=== PATIENT | female | born 1995 | race Caucasian/White ===

== ENCOUNTER 2022-01-30 09:16 | Outpatient (CLI) | payer BC, SELFPAY ==
[2022-01-30 11:17] LABS: Cholesterol* 226 mg/dL (90-199); Glucose* 94 mg/dL (60-115); HDL Cholesterol* 41 mg/dL (>=50); LDL Cholesterol Calculated 159 mg/dL (<100); Triglycerides* 132 mg/dL (40-149)
== END 2022-01-30 09:17 | disposition home or self-care (01) ==
PROVIDERS: Visit Provider Registered Nurse
DX: Z01.419 Encounter for gynecological examination (general) (routine) without abnormal findings (principal); Z12.4 Encounter for screening for malignant neoplasm of cervix; Z13.1 Encounter for screening for diabetes mellitus; Z13.6 Encounter for screening for cardiovascular disorders
CPT/HCPCS: 80061; 82947; 87624; 88175

== ENCOUNTER 2022-06-12 12:42 | Outpatient (CLI) | payer BC, SELFPAY ==
--- NOTE | 2022-06-12 13:00 | CRLHL7_ITS ---
For Patients: As a result of the Cures Act, medical imaging exams and procedure reports are released immediately into your electronic medical record. You may view this report before your referring provider. If you have questions, please contact your health care provider. INDICATION: First trimester scan, establish dates. COMPARISON: None. TECHNIQUE: Real-time morris-scale imaging of the pelvis was performed. FINDINGS: Sonographic imaging demonstrates a single living intrauterine gestation. The embryo demonstrates a regular cardiac rate measuring 179 beats per minute. The embryo`s crown-rump length measurement of 2.6 cm corresponds to a gestational age of 9 weeks 2 days with a sonographic due date of 01/13/2023. There is a normal-appearing yolk sac. There are no gross abnormalities noted within the embryo at this early state of development. The gestational sac has a normal appearance. There is no evidence of a perigestational hemorrhage. The amount of fluid within the sac appears appropriate for gestational age. The cervix is closed. The myometrium appears normal. The ovaries are of normal size. Corpus luteal cyst left ovary. There are no suspicious fluid collections noted in the cul-de-sac. IMPRESSION: Normal first trimester OB ultrasound exam. Gestational age calculated at 9 weeks 2 days with a sonographic due date of 01/13/2023. Dictated by Alvaro Davis MD @ 06/14/2022 9:39:40 AM (Electronically Signed)
== END 2022-06-12 12:43 | disposition home or self-care (01) ==
LOC: US 12:44
PROVIDERS: Visit Provider Registered Nurse
DX: Z34.91 Encounter for supervision of normal pregnancy, unspecified, first trimester (principal); Z3A.09 9 weeks gestation of pregnancy
CPT/HCPCS: 76817; 86592; 86703; 86762; 86787; 86803; 86850; 86900; 86901; 87086; 87340; 87491; 87591

== ENCOUNTER 2022-10-23 14:15 | Outpatient (CLI) | payer BC, SELFPAY | END 2022-10-23 14:16 | disposition home or self-care (01) | LOC: NFLDREF 10-25 18:58 | PROVIDERS: Visit Provider Obstetrics & Gynecology | DX: Z34.93 Encounter for supervision of normal pregnancy, unspecified, third trimester (principal); Z3A.28 28 weeks gestation of pregnancy | CPT/HCPCS: 86592 ==

== ENCOUNTER 2022-11-20 12:47 | Outpatient (CLI) | payer BC, SELFPAY ==
--- NOTE | 2022-11-20 13:00 | CRLHL7_ITS ---
For Patients: As a result of the Century Cures Act, medical imaging exams and procedure reports are released immediately into your electronic medical record. You may view this report before your referring provider. If you have questions, please contact your health care provider. OB ULTRASOUND 11/20/2022 INDICATION: History of COVID in . FINDINGS: Single. REGAN by LMP: 01/15/2023. GA: 32 weeks 0 days. Position: Vertex. Cervix: Not visualized. Placenta Position: Posterior, TA. Amniotic Fluid: 4.9 cm SDP. Heart Rate: 125. BIOMETRY: BPD: 8.5 cm. 34w, 2d, 94 percent. HC: 31 cm. 34w, 5d, 82 percent. AC: 31.1 cm. 34w, 1d, >97 percent. FL: 6.8 cm. 34w, 6d, 95 percent. FL/AC ratio: 21.77 percent. HC/AC ratio: 1. EFW: 2540 g. Weight: 5 lbs, 10 oz. age by this US: 34w, 5d. REGAN by this US: 12/27/2022. Percentile by REGAN: >97. IMPRESSION: 1. Single live intrauterine gestation at 34 weeks 5 days. REGAN of 12/27/2022. 2. Estimated weight measures 2540 grams which lies at greater than 97 percent. Kenzie Garcia M.D. Diagnostic/Breast Radiologist [email or web address] LC/freedom / DW/Dictated by: Kenzie Garcia MD @ 11/22/2022 7:32:00 AM (Electronically Signed)
== END 2022-11-20 12:48 | disposition home or self-care (01) ==
LOC: US 12:47
PROVIDERS: Visit Provider Obstetrics & Gynecology
DX: O98.513 Other viral diseases complicating pregnancy, third trimester (principal); Z3A.32 32 weeks gestation of pregnancy
CPT/HCPCS: 76816

== ENCOUNTER 2022-11-27 07:55 | Outpatient (CLI) | payer BC, SELFPAY ==
--- NOTE | 2022-11-27 08:15 | CRLHL7_ITS ---
For Patients: As a result of the Century Cures Act, medical imaging exams and procedure reports are released immediately into your electronic medical record. You may view this report before your referring provider. If you have questions, please contact your health care provider. INDICATION: MORBID OBESITY COMPARISON: 11/20/2022 TECHNIQUE: Real time morris scale imaging of the fetus was performed. Without non-stress testing. FINDINGS: Sonographic imaging demonstrates a single living intrauterine gestation. Fetus demonstrates a regular cardiac rate of 154 beats per minute. Fetus has a vertex position. The amniotic fluid volume appears lower limits of normal and there is a single deepest pocket measurement of 4.5 cm. AIDEN 8.5 cm. The fetus was active and demonstrated normal breathing movements. There was normal flexion and extension of the trunk and extremities. IMPRESSION: Normal biophysical profile score of 8 out of 8. Lower limits of normal amniotic fluid with AIDEN 8.5 cm. Dictated by Alvaro Davis MD @ 11/27/2022 8:59:56 AM (Electronically Signed)
== END 2022-11-27 07:56 | disposition home or self-care (01) ==
PROVIDERS: Visit Provider Obstetrics & Gynecology
DX: O99.210 Obesity complicating pregnancy, unspecified trimester (principal)
CPT/HCPCS: 76819

== ENCOUNTER 2022-12-04 08:59 | Outpatient (CLI) | payer BC, SELFPAY ==
--- NOTE | 2022-12-04 09:15 | CRLHL7_ITS ---
For Patients: As a result of the Century Cures Act, medical imaging exams and procedure reports are released immediately into your electronic medical record. You may view this report before your referring provider. If you have questions, please contact your health care provider. INDICATION: OBESITY COMPARISON: 11/27/2022 TECHNIQUE: Real time morris scale imaging of the fetus was performed. Without non-stress testing. FINDINGS: Sonographic imaging demonstrates a single living intrauterine gestation. Fetus demonstrates a regular cardiac rate of 176 beats per minute. Fetus has a vertex position. The amniotic fluid volume appears normal and there is a single deepest pocket measurement of 5.1 cm. The fetus was active and demonstrated normal breathing movements. There was normal flexion and extension of the trunk and extremities. IMPRESSION: Normal biophysical profile score of 8 out of 8. Dictated by Alvaro Davis MD @ 12/04/2022 11:04:21 AM (Electronically Signed)
== END 2022-12-04 09:00 | disposition home or self-care (01) ==
PROVIDERS: Visit Provider Obstetrics & Gynecology
DX: O99.210 Obesity complicating pregnancy, unspecified trimester (principal)
CPT/HCPCS: 76819

== ENCOUNTER 2022-12-09 12:48 | Outpatient (CLI) | payer BC, SELFPAY ==
--- NOTE | 2022-12-09 13:00 | CRLHL7_ITS ---
For Patients: As a result of the Century Cures Act, medical imaging exams and procedure reports are released immediately into your electronic medical record. You may view this report before your referring provider. If you have questions, please contact your health care provider. INDICATION: Obesity COMPARISON: 12/04/2022 TECHNIQUE: Real time morris scale imaging of the fetus was performed. Without non-stress testing. FINDINGS: Sonographic imaging demonstrates a single living intrauterine gestation. Fetus demonstrates a regular cardiac rate of 176 beats per minute. Fetus has a vertex position. The amniotic fluid volume appears normal and there is a single deepest pocket measurement of 6.1 cm. The fetus was active and demonstrated normal breathing movements. There was normal flexion and extension of the trunk and extremities. IMPRESSION: Normal biophysical profile score of 8 out of 8. Dictated by Alvaro Davis MD @ 12/09/2022 1:27:27 PM (Electronically Signed)
== END 2022-12-09 12:49 | disposition home or self-care (01) ==
LOC: US 12:49
PROVIDERS: Visit Provider Obstetrics & Gynecology
DX: O99.210 Obesity complicating pregnancy, unspecified trimester (principal); Z68.41 Body mass index [BMI] 40.0-44.9, adult
CPT/HCPCS: 76819

== ENCOUNTER 2022-12-18 12:01 | Outpatient (CLI) | payer BC, SELFPAY ==
--- NOTE | 2022-12-18 12:15 | CRLHL7_ITS ---
For Patients: As a result of the Century Cures Act, medical imaging exams and procedure reports are released immediately into your electronic medical record. You may view this report before your referring provider. If you have questions, please contact your health care provider. INDICATION: MORBID OBESITY TECHNIQUE: Real time morris scale imaging of the fetus was performed. COMPARISON: 12/09/2022 FINDINGS: Sonographic imaging demonstrates a single living intrauterine gestation. Fetus demonstrates a regular cardiac rate of 147 beats per minute. Fetus has a vertex position. The placenta lies posteriorly. Amniotic fluid volume appears normal and there is a single deepest pocket of 6.0 cm. AIDEN 16.4 cm. The estimated weight is 3629gm which lies at the greater than 97th %. On the prior OB ultrasound dated 11/20/2022 the estimated weight was at the greater than 97th percentile. BPD, HC, AC greater than 97th percentile. FL 43rd percentile. The fetus was active and demonstrated normal breathing movements. There was normal flexion and extension of the trunk and extremities. IMPRESSION: Normal biophysical profile score 8/8. Sonographic gestational age 39 weeks 0 days and sonographic due date of 12/25/2022. Sonographic age 3 weeks ahead of the clinical age. Estimated weight greater than 97th percentile. AC, HC, BPD greater than 97th percentile. Dictated by Alvaro Davis MD @ 12/18/2022 1:23:59 PM (Electronically Signed)
== END 2022-12-18 12:02 | disposition home or self-care (01) ==
PROVIDERS: Visit Provider Obstetrics & Gynecology
DX: O99.213 Obesity complicating pregnancy, third trimester (principal); Z68.41 Body mass index [BMI] 40.0-44.9, adult; Z3A.39 39 weeks gestation of pregnancy
CPT/HCPCS: 76816; 76819; 87081; 87653

== ENCOUNTER 2022-12-24 12:46 | Outpatient (CLI) | payer BC, SELFPAY ==
--- NOTE | 2022-12-24 13:00 | CRLHL7_ITS ---
For Patients: As a result of the Century Cures Act, medical imaging exams and procedure reports are released immediately into your electronic medical record. You may view this report before your referring provider. If you have questions, please contact your health care provider. INDICATION: OBESITY COMPARISON: 12/18/2022 TECHNIQUE: Real time morris scale imaging of the fetus was performed. Without non-stress testing. FINDINGS: Sonographic imaging demonstrates a single living intrauterine gestation. Fetus demonstrates a regular cardiac rate of 125 beats per minute. Fetus has a vertex position. The amniotic fluid volume appears normal and there is a single deepest pocket measurement of 6.2 cm. The fetus was active and demonstrated normal breathing movements. There was normal flexion and extension of the trunk and extremities. IMPRESSION: Normal biophysical profile score of 8 out of 8. Signed by: Alvaro Davis MD @12/24/2022 1:44:43 PM JR/Dictated by: Alvaro Davis MD @ 12/24/2022 1:45:00 PM (Electronically Signed)
== END 2022-12-24 12:47 | disposition home or self-care (01) ==
LOC: US 12:47
PROVIDERS: Visit Provider Obstetrics & Gynecology
DX: O99.210 Obesity complicating pregnancy, unspecified trimester (principal); Z68.41 Body mass index [BMI] 40.0-44.9, adult
CPT/HCPCS: 76819

== ENCOUNTER 2023-01-01 13:45 | Outpatient (CLI) | payer OTHER, BC, SELFPAY ==
--- NOTE | 2023-01-01 14:00 | CRLHL7_ITS ---
For Patients: As a result of the Century Cures Act, medical imaging exams and procedure reports are released immediately into your electronic medical record. You may view this report before your referring provider. If you have questions, please contact your health care provider. INDICATION: OBESITY COMPARISON: 12/24/2022 TECHNIQUE: Real time morris scale imaging of the fetus was performed. Without non-stress testing. FINDINGS: Sonographic imaging demonstrates a single living intrauterine gestation. Fetus demonstrates a regular cardiac rate of 144 beats per minute. Fetus has a vertex position. The amniotic fluid volume appears normal and there is a single deepest pocket measurement of 4.6 cm. Normal breathing movements. Minimal gross body movements. There was normal flexion and extension of the trunk and extremities. IMPRESSION: Biophysical profile 09/03. Dictated by Alvaro Davis MD @ 01/01/2023 3:24:38 PM (Electronically Signed)
== END 2023-01-01 13:46 | disposition home or self-care (01) ==
LOC: US 13:45
PROVIDERS: Visit Provider Obstetrics & Gynecology
DX: O99.210 Obesity complicating pregnancy, unspecified trimester (principal)
CPT/HCPCS: 76819

== ENCOUNTER 2023-01-05 11:58 | Outpatient (CLI) | payer OTHER, SELFPAY ==
--- NOTE | 2023-01-05 12:15 | CRLHL7_ITS ---
For Patients: As a result of the Century Cures Act, medical imaging exams and procedure reports are released immediately into your electronic medical record. You may view this report before your referring provider. If you have questions, please contact your health care provider. INDICATION: MORBID OBESITY COMPARISON: 01/01/2023 TECHNIQUE: Real time morris scale imaging of the fetus was performed. Without non-stress testing. FINDINGS: Sonographic imaging demonstrates a single living intrauterine gestation. Fetus demonstrates a regular cardiac rate of 150 beats per minute. Fetus has a vertex position. The amniotic fluid volume appears normal and there is a single deepest pocket measurement of 4.0 cm. The fetus was active and demonstrated normal breathing movements. There was normal flexion and extension of the trunk and extremities. IMPRESSION: Normal biophysical profile score of 8 out of 8. Dictated by Alvaro Davis MD @ 01/06/2023 10:06:08 AM (Electronically Signed)
== END 2023-01-05 11:59 | disposition home or self-care (01) ==
LOC: US 12:00
PROVIDERS: Visit Provider Obstetrics & Gynecology
DX: O99.210 Obesity complicating pregnancy, unspecified trimester (principal)
CPT/HCPCS: 76819

== ENCOUNTER 2023-01-11 07:03 | Inpatient (IN) | payer OTHER, SELFPAY ==
[2023-01-11] VITALS (69 sets, daily range): BP systolic 88–148; BP diastolic 51–88; PULSE 62–156; RESP 16–18; TEMP 36.4–37; O2SAT 81–100; BMI 45.6
[2023-01-11 08:14] LABS: Basophils Absolute Auto 0.02 K/uL (0.00-0.30); Basophils Percent Auto 0.2 % (0.0-3.0); Eosinophils Absolute Auto 0.06 K/uL (0.00-0.50); Eosinophils Percent Auto 0.6 % (0.0-7.0); Hematocrit 35.2 % (33.0-51.0); Hemoglobin* 11.8 gm/dL (12.0-16.0); Immature Granulocytes Abs Auto 0.05 K/uL (0.00-0.30); Immature Granulocytes Pct Auto 0.5 %; Mean Corpuscular HGB Conc 34 gm/dL (32-36); Mean Corpuscular Hemoglobin 29 pg (26-34); Mean Corpuscular Volume 87 fL (80-100); Neutrophils Percent Auto 75.7 % (42.0-72.0); Platelet Count* 260 K/uL (140-440); RDW Coefficient of Variation % 13.7 % (11.5-15.5); Red Blood Count 4.04 m/uL (4.00-5.20); White Blood Count* 9.83 K/uL (4.50-11.00)
[2023-01-11 08:15] LABS: Slide Review Reflex No
[2023-01-11] MEDS: OXYTOCIN 30 unit/500 ML in NS 30 UNIT/500 ML BAG IVPB (08:43)
--- NOTE | 2023-01-11 08:45 | P.LDBA_ITS ---
Subjective History of Present Illness Time Seen by Provider: 12:41 Date Seen: 01/11/23 Narrative: Patient is being admitted to Labor and Delivery for elective induction of labor for suspected macrosomia. She is a 27 year old at 39.3 weeks gestation. Her full history and physical was dictated by Jackie Ernandez on 12/24/22. Please see this for details. Active movement. Denies LOF, vaginal bleeding or abnormal vaginal discharge. She reports losing her mucous plug 3 days ago which was blood tinged but since then has not had any more vaginal bleeding. Currently still very comfortable without much labor pain. Feeling intermittent contractions. Specific Issues/Plans ; REGAN: 01/15/2023 by LMP 04/10/2022 c/w 1st trimester USN Fiance: Domingo. Daughter: Guera. Baby: BOY!! H&P 12/24/22, Oma Desires elective IOL at 39 weeks if undelivered - scheduling form sent out for 01/08/23, patient bumped to 01/11/23, consent signed on 01/05/2023. 1. Obesity 43.9 * Hemoglobin A1c: 5.4% * Nutrition referral declined. Patient met with Nutrition a few months ago and feels that she has a good grasp on appropriate dietary intake. * Anesthesia referral: 12/17/22 * Level 2 ultrasound: Normal anatomy by Dr. Savage 09/02/22 * Early GDM testing at 20 weeks:112 * Weekly BPP and/or NST starting at 32 weeks (likely BPP's as patient body habitus will make NST's difficult) 2. Vacuum assisted vaginal delivery for bradycardia 01/16. Second-degree perineal laceration. Meconium-stained fluid. EBL 600 mL. No shoulder dystocia. Did not really pull with vacuum at all per pt report. 3. Stress urinary incontinence. Will place referral for pelvic floor PT. Has been able to get ahold of anyone. Message sent for them to try again. 4. History of depression and anxiety. Currently feeling great. 5. Covid positive 06/26- reschedule next appt due to quarantine policy * USN for EFW at 32-36 weeks. 6. Suspected macrosomia * Growth scan on 11/20/2022: EFW >97%tile, AC >97%tile * Growth 12/18/22: EFW>97%, AC >97% * Consider elective induction labor at 39 and 40 weeks gestation. 7. History of anxiety She would like to start medication at time of discharge Flu: completed Covid: not vaccinated. Tdap: 11/09/22 OB - Problem Based A/P Additional Plan (1) BMI 40.0-44.9, adult: Status: Acute (2) : Status: Acute (3) Depression: Status: Chronic (4) Anxiety: Status: Chronic Plan - AROM at 1230 with patient's consent. Overall clear fluid, small amount of blood tinged. Patient tolerated the procedure well. - Will continue titrating pitocin - Epidural per patient request. She will eventually desire. Delivery/Labor/Induction Plan Plan: induction Induction method: per pitocin protocol OB Exam Physical Exam Vital signs: Temp Pulse Resp BP Pulse Ox 98.6 F 95 16 139/79 99 01/11/23 07:41 01/11/23 07:41 01/11/23 07:41 01/11/23 07:41 01/11/23 07:14 Detailed Labor and Delivery Exam Patient Gravid: Yes Dilation (cm): 3 Effacement (%): 50 Cervix position: mid Consistency: medium Contraction Frequency: Q2 minutes Contraction intensity: Mild Fetus (Single) Station: -3 Amniotic Membrane Status: AROM Amniotic Membrane Fluid Description: Clear (Small amount of blood tinged ) Heart Rate Baseline: 140 Monitor Accelerations: Present Monitor Decelerations: None [employer] Et[employer] Developer Variability: Moderate (6-25)
[2023-01-11] MEDS: LACTATED RINGERS 1000 ML 1,000 ML 125 ML IV (08:46)
[2023-01-11] MEDS: LACTATED RINGERS 1000 ML 1,000 ML 118 ML IV (15:33)
[2023-01-11] MEDS: LACTATED RINGERS 1000 ML 1,000 ML 1200 ML IV ×2 (16:56→17:54)
[2023-01-11 17:08] LABS: Hematocrit 35.1 % (33.0-51.0); Hemoglobin* 11.6 gm/dL (12.0-16.0); Mean Corpuscular HGB Conc 33 gm/dL (32-36); Mean Corpuscular Hemoglobin 29 pg (26-34); Mean Corpuscular Volume 88 fL (80-100); Platelet Count* 244 K/uL (140-440); Red Blood Count 3.99 m/uL (4.00-5.20)
[2023-01-11 17:14] LABS: Slide Review Reflex No
[2023-01-11] MEDS: ROPIVACAINE 0.2% 100 ml 100 ML 12 MG EPIDURAL (17:23)
[2023-01-11] MEDS: LIDOCAINE 2% (PF) 5 ML VIAL EPIDURAL (17:23)
[2023-01-11 17:24] LABS: Alanine Aminotransferase* 19 U/L (4-35); Aspartate Amino Transferase* 23 U/L (12-35); Blood Urea Nitrogen* 6 mg/dL (5-24); Creatinine* 0.6 mg/dL (0.5-1.5); Est. Creatinine Clearance* 145.89; Estimated Glomerular Filt Rate 125 ml/min
--- NOTE | 2023-01-11 17:28 | PM.ANBPRC ---
[facility] Medical History Anxiety ?F41.9 - Anxiety disorder, unspecified (ICD-10) Depression ?F32.A - Depression, unspecified (ICD-10) Morbid obesity with BMI of 40.0-44.9, adult ?E66.01 - Morbid (severe) obesity due to excess calories (ICD-10) ?Z68.41 - Body mass index [BMI] 40.0-44.9, adult (ICD-10) Surgical History History of vaginal delivery (01/04/21) H/O eye surgery ?Z98.890 - Other specified postprocedural states (ICD-10) Family History Mother Benign tumor Daughter Tracheomalacia Social History What is your current living situation?: I presently have a place to live Problems where you live: no known problems In the past 12 months, utilities in danger of being shut off: no In past 12 months, lack of transportation kept you from medical appts, meetings, work, or getting things needed for daily living: no In the past 12 mos, have been you worried that your food would run out before you had money to buy more?: never true In the past 12 mos, the food you bought just didn't last and you didn't have money to buy more?: never true Smoking Status: Never smoker How often does anyone, including family, friends and others, physically hurt you: never How often does anyone, including family, friends and others, insult or talk down to you: rarely How often does anyone, including family, friends and others, threaten you with harm: never How often does anyone, including family, friends and others, scream or curse at you: never Little interest or pleasure in doing things: not at all Feeling down, depressed, or hopeless: not at all Meds Home Medications and Allergies Home Medications Medication Instructions Recorded Confirmed Type docosahexaenoic acid 200 mg 200 mg PO .once daily 06/12/22 01/11/23 History capsule ( DHA) acetaminophen 500 mg tablet 1,000 mg PO Q6H PRN 09/02/22 01/11/23 History (Tylenol Extra Strength) calcium carbonate 200 mg calcium 200 mg PO ONCE PRN 12/04/22 01/11/23 History (500 mg) chewable tablet (Tums) Allergies Allergy/AdvReac Type Severity Reaction Status Date / Time fish oil Allergy Mild Hives Verified 01/11/23 12:09 Results Labs Labs: Laboratory Results - last 24 hr 01/11/23 01/11/23 08:06 17:00 WBC 9.83 12.60 H RBC 4.04 3.99 L Hgb 11.8 L 11.6 L Hct 35.2 35.1 MCV 87 88 MCH 29 29 MCHC 34 33 RDW Coeff of Miguelangel 13.7 Plt Count 260 244 Neut % (Auto) 75.7 H Lymph % (Auto) 16.0 L [place] % (Auto) 7.0 Eos % (Auto) 0.6 Baso % (Auto) 0.2 Neut # (Auto) 7.40 H Lymph # (Auto) 1.60 [place] # (Auto) 0.70 Eos # (Auto) 0.06 Baso # (Auto) 0.02 Abs Immat Gran (auto) 0.05 Imm/Tot Granulo (auto) 0.5 Blood Type O Positive Antibody Screen NEGATIVE Vital Signs Vital Signs: Last Vital Signs Temp 97.7 F 01/11/23 16:23 Pulse 87 01/11/23 17:27 Resp 18 01/11/23 16:23 BP 131/64 01/11/23 17:27 Pulse Ox 100 01/11/23 17:26 Weight: 140.341 kg Height: 175.26 cm Anesthesia Procedures Epidural Insertion Patient Location: OB Start Time: 17:00 Stop Time: 17:45 Start Date: 01/11/23 Stop Date: 01/11/23 Reason for Block: primary anesthetic Patient Position: sitting Performed By: Harman Bradford Preanesthetic Checklist: IV checked, risks and benefits discussed, surgical consent, monitors and equipment checked, pre-op evaluation, timeout performed and anesthesia consent Prep: chlorhexidine gluconate Monitoring: blood pressure monitoring, quality assurance monitor, continuous pulse oximetry and heart rate Approach: midline Vertebral Space: lumbar (1-5) Needle Type: Tuohy needle Injection Technique: continuous catheter (catheter) Needle gauge: 17 Needle Length (cm): 10 cm Needle Insertion Depth (cm): 7 Catheter Gauge: 19 Catheter Type: multi-orifice Catheter at skin depth (cm): 12 Test Dose Result: negative and lidocaine 1.5% with epinephrine 1 to 200,000
[2023-01-11] MEDS: PHENYLEPHRINE 100 MCG/ML SYRINGE IVP ×2 (17:56→18:01)
[2023-01-11 18:37] LABS: Total Protein Urine 7 mg/dL
[2023-01-11 18:43] LABS: Creatinine Urine 219.7 mg/dL
--- NOTE | 2023-01-11 20:36 | W.PM.VAGDEL1 ---
Procedure Delivery date: 01/11/23 Procedure Done: Global Narrative: Jazmin is a 27 year-old G2 P 1001 admitted on 01/11/2023 at 39 and 3/7 weeks gestation for induction of labor. Cervical exam on admission was 3 cm/50 % effaced/-3 station with membranes intact in vertex presentation. Contractions were every 3-5 minutes. heart rate demonstrated baseline 150 bpm with moderate variability, + accelerations, - decelerations; a category I tracing. GBS negative AROM occurred at 1222 on 01/11/2023 with clear fluid. Labor Analgesia: Epidural Pitocin: Yes - titrating Pitocin as method of induction of labor. Labor onset: 01/11/2023 at 1609 Complete: 01/11/2023 at 1949 Pushin01/11/2023 at 1953 heart tones during second stage were Cat II At 2000 a viable male delivered in vertex OA presentation via spontaneous vaginal delivery. was placed on maternal abdomen. Cord was clamped and cut after a 30-60 second delay. Nose and mouth were bulb suctioned. weight: Pending. 9 at 1 minute and 9 at 5 minutes. Shoulder dystocia: No. Nuchal cord: No . Placenta delivered spontaneously and complete at 2004 with a 3 vessel cord. Complications: None. Mother and infant were stable after delivery. Laceration(s): 1st degree, repaired with 2-0 chromic in continuous manner. Estimated blood loss: 50 mL. Sponge and needles counts are correct. Mother and infant were stable at the time of this note. Jazmin is undecided about .
[2023-01-11] MEDS: ACETAMINOPHEN 500 MG TABLET 1000 MG PO (21:35)
[2023-01-12] MEDS: IBUPROFEN 600 MG TABLET PO ×4 (00:46→19:36)
[2023-01-12 04:07] VITALS: BP 128/66; PULSE 62; RESP 16; TEMP 36.6; O2SAT 97
[2023-01-12] MEDS: ENOXAPARIN 40 MG/0.4 ML INJ SUBCUT (04:08)
[2023-01-12] MEDS: ACETAMINOPHEN 500 MG TABLET 1000 MG PO ×3 (04:09→15:45)
[2023-01-12 06:29] LABS: Hemoglobin* 10.7 gm/dL (12.0-16.0)
[2023-01-12 07:35] VITALS: BP 107/69; PULSE 75; RESP 16; TEMP 36.6; O2SAT 97
--- NOTE | 2023-01-12 07:39 | P.OBPN_ITS ---
OB - PN:Subj Subjective Date Seen: 01/12/23 Patient comments OB post-: no complaints, pain well controlled, tolerating diet and flatus present [place] status: bottle and doing well feeding status: exclusively bottle feeding Narrative: Jazmin is a 27 y.o. who was admitted to L & D for elective IOL for suspected macrosomia. ?She had an uncomplicated NVD.?The patient feels well. ?The pain is well controlled with current medications. ?She has no new complaints. ?She is formula feeding and reports things are going well. She is considering pumping at home, undecided.? the patient has done well.? Vitals have been stable.? She has remained afebrile.? Has a good appetite, is tolerating a general diet. ?She is voiding without difficulty.? She is passing gas and has not had a bowel movement.? She is ambulating and denies any dizziness.? Has small amount of rubra lochia. ?She is considering discharge late this evening or tomorrow morning. She had discussed starting depression/anxiety medication . She has used sertraline 50 mg previously. She said she does not remember the dose but June had prescribed some. She said her plan was to go back on the sertraline. I was under the impression she already had some but I do not see any prescribed recently. Will need rx at discharge. OB - PN: Obj Exam Physical Exam: Vital signs: Temp Pulse Resp BP Pulse Ox O2 Del Method 97.9 F 62 16 128/66 97 Room Air 01/12/23 04:07 01/12/23 04:07 01/12/23 04:07 01/12/23 04:07 01/12/23 04:07 01/12/23 04:07 Narrative: GENERAL APPEARANCE:? normal affect, alert, no distress MOOD:? appropriate CHEST:? clear to auscultation HEART:? regular rate and rhythm ABDOMEN:? soft, non-tender the uterine fundus is at Umbilicus, Midline and is appropriate for the stage of recovery. PERINEUM:? mild edema of the perineum, there is a Perineal Laceration,? 1st degree, that is healing well. EXTREMITIES:? normal and no edema OB - PN: Obj Data Labs Labs: Laboratory Results - last 24 hr 01/11/23 01/11/23 01/11/23 08:06 17:00 18:12 WBC 9.83 12.60 H RBC 4.04 3.99 L Hgb 11.8 L 11.6 L Hct 35.2 35.1 MCV 87 88 MCH 29 29 MCHC 34 33 RDW Coeff of Miguelangel 13.7 Plt Count 260 244 Neut % (Auto) 75.7 H Lymph % (Auto) 16.0 L [place] % (Auto) 7.0 Eos % (Auto) 0.6 Baso % (Auto) 0.2 Neut # (Auto) 7.40 H Lymph # (Auto) 1.60 [place] # (Auto) 0.70 Eos # (Auto) 0.06 Baso # (Auto) 0.02 Abs Immat Gran (auto) 0.05 Imm/Tot Granulo (auto) 0.5 BUN 6 Creatinine 0.6 Estimated Creat Clear 145.89 Estimated GFR 125 AST 23 ALT 19 Urine Creatinine 219.7 Protein/Creatinin Ratio 0.00 Urine Total Protein 7 Blood Type O Positive Antibody Screen NEGATIVE 01/12/23 06:05 WBC RBC Hgb 10.7 L Hct MCV MCH MCHC RDW Coeff of Miguelangel Plt Count Neut % (Auto) Lymph % (Auto) [place] % (Auto) Eos % (Auto) Baso % (Auto) Neut # (Auto) Lymph # (Auto) [place] # (Auto) Eos # (Auto) Baso # (Auto) Abs Immat Gran (auto) Imm/Tot Granulo (auto) BUN Creatinine Estimated Creat Clear Estimated GFR AST ALT Urine Creatinine Protein/Creatinin Ratio Urine Total Protein Blood Type Antibody Screen OB - PN: A/P Delivery Assessment and Plan (1) care and examination immediately after delivery: Status: Acute (2) Depression: Status: Chronic (3) Anxiety: Status: Chronic (4) Normal vaginal delivery: Status: Acute Plan day: 1 Plan: routine care Comments: Anxiety/depression. Start Sertraline 50 mg QD upon discharge. Hgb 10.7 Anticipate discharge tomorrow. She is considering late discharge tonight.
[2023-01-12] MEDS: DOCUSATE SODIUM 100 MG CAPSULE PO (08:03)
--- NOTE | 2023-01-12 12:26 | PC.SOCIAL ---
Referral was made due to pt response provided on social detriments of health screening. Pt answers rarely to question asking if anyone ever raises their voice at pt. Pt informs that she answered that way due to having a different dynamic of relationship with her mother. Pt informs that she has good boundaries in place with her mother and her mother lives six hours away from pt. Pt has a good support system and is prepared for taking her home. Pt is not in need of any resources from social work at this time.
[2023-01-12 12:27] VITALS: BP 121/79; PULSE 72; RESP 16; TEMP 36.5; O2SAT 97
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
[2023-01-12 15:36] VITALS: BP 128/82; PULSE 65; RESP 16; TEMP 36.6; O2SAT 98
== END 2023-01-12 20:55 | disposition home or self-care (01) | DRG 807 ==
PROVIDERS: Admitting Provider Obstetrics & Gynecology; Visit Provider Obstetrics & Gynecology
DX: O36.63X0 Maternal care for excessive fetal growth, third trimester, not applicable or unspecified (principal); Z37.0 Single live birth; O13.4 Gestational [pregnancy-induced] hypertension without significant proteinuria, complicating childbirth; O70.0 First degree perineal laceration during delivery; O99.344 Other mental disorders complicating childbirth; F41.9 Anxiety disorder, unspecified; F32.A Depression, unspecified; O99.214 Obesity complicating childbirth; E66.01 Morbid (severe) obesity due to excess calories; N39.3 Stress incontinence (female) (male); Z3A.39 39 weeks gestation of pregnancy
CPT/HCPCS: 01967; 36415; 82565; 82570; 84156; 84450; 84460; 84520; 85018; 85025; 85027; 86850; 86900; 86901; A9270; J1650; J2371; J2795; J7120

== ENCOUNTER 2023-08-09 06:14 | Emergency (ER) | payer OTHER, SELFPAY ==
--- NOTE | 2023-08-09 06:32 | ED_ITS ---
HPI - General Adult General Time Seen by Provider: 06:32 <Selwyn Rivero MD - Last Filed: 08/12/23 03:29> Date Seen: 08/09/23 <Selwyn Rivero MD - Last Filed: 08/12/23 03:29> Chief complaint: Abdominal Pain <Selwyn Rivero MD - Last Filed: 08/12/23 03:29> Stated complaint: right rib pain,vomiting,nausea,diarrhea <Selwyn Rivero MD - Last Filed: 08/12/23 03:29> Time Seen by Provider: 08/09/23 06:32 <Selwyn Rivero MD - Last Filed: 08/12/23 03:29> Source: patient, RN notes reviewed and old records reviewed <Selwyn Rivero MD - Last Filed: 08/12/23 03:29> Mode of arrival: ambulatory <Selwyn Rivero MD - Last Filed: 08/12/23 03:29> Limitations: no limitations <Selwyn Rivero MD - Last Filed: 08/12/23 03:29> History of Present Illness HPI narrative: 27-year-old female who presents today with nausea vomiting and right upper quadrant pain. Symptoms started early this morning. She does note she has had some intermittent right upper quadrant pain over the last several months, will usually common last couple of hours, then goes away, sometimes accompanied by vomiting. Today pain is been worse and more constant, right upper quadrant and sometimes into the right flank accompanied by nausea vomiting. Also multiple episodes of loose stools today. No fever chills, no chest pain or cough. <Selwyn Rivero MD - Last Filed: 08/12/23 03:29> Related Data Home medications: Home Medications Medication Instructions Recorded Confirmed acetaminophen 500 mg tablet 1,000 mg PO Q6H PRN 09/02/22 02/24/23 (Tylenol Extra Strength) Previous Rx's Medication Instructions Recorded ibuprofen 600 mg tablet 600 mg PO Q6H PRN #60 tabs 01/12/23 levonorgestrel-ethinyl estradiol 1 tab PO QDAY #84 tabs 02/24/23 0.1 mg-20 mcg tablet (Aviane) sertraline 50 mg tablet 50 mg PO DAILY #90 tabs 02/24/23 <Selwyn Rivero MD - Last Filed: 08/12/23 03:29> Allergies/adverse reactions: Allergies Allergy/AdvReac Type Severity Reaction Status Date / Time fish oil Allergy Mild Hives Verified 02/24/23 10:51 <Selwyn Rivero MD - Last Filed: 08/12/23 03:29> [facility] Medical History: Medical History Gestational hypertension ?O13.9 - Gestational [-induced] hypertension without significant proteinuria, unspecified trimester (ICD-10) Normal vaginal delivery ?O80 - Encounter for full-term uncomplicated delivery (ICD-10) Anxiety ?F41.9 - Anxiety disorder, unspecified (ICD-10) Depression ?F32.A - Depression, unspecified (ICD-10) Morbid obesity with BMI of 40.0-44.9, adult ?E66.01 - Morbid (severe) obesity due to excess calories (ICD-10) ?Z68.41 - Body mass index [BMI] 40.0-44.9, adult (ICD-10) <Selwyn Rivero MD - Last Filed: 08/12/23 03:29> Surgical History: Surgical History History of vaginal delivery (01/04/21) H/O eye surgery ?Z98.890 - Other specified postprocedural states (ICD-10) <Selwyn Rivero MD - Last Filed: 08/12/23 03:29> Family History: Family History Mother Benign tumor Daughter Tracheomalacia <Selwyn Rivero MD - Last Filed: 08/12/23 03:29> Social History: Social History What is your current living situation?: I presently have a place to live Problems where you live: no known problems In the past 12 months, utilities in danger of being shut off: no In past 12 months, lack of transportation kept you from medical appts, meetings, work, or getting things needed for daily living: no In the past 12 mos, have been you worried that your food would run out before you had money to buy more?: never true In the past 12 mos, the food you bought just didn't last and you didn't have money to buy more?: never true Smoking Status: Never smoker Do you use any of these nicotine containing products: None Second hand tobacco smoke exposure: No How often do you have a drink containing alcohol: monthly or less AUDIT-C Alcohol total score: 1 Non-prescribed substance use: denies use How often does anyone, including family, friends and others, physically hurt you : never How often does anyone, including family, friends and others, insult or talk down to you: rarely How often does anyone, including family, friends and others, threaten you with harm: never How often does anyone, including family, friends and others, scream or curse at you: never Little interest or pleasure in doing things: not at all Feeling down, depressed, or hopeless: not at all service: No <Selwyn Rivero MD - Last Filed: 08/12/23 03:29> Exam Narrative: Exam Narrative: General: Well-developed and well-nourished, no acute distress Head: Atraumatic and normocephalic Eyes: Pupils are equal reactive, extraocular motions intact, conjunctiva clear ENT: External nose and ears are normal, posterior pharynx without erythema or exudate Neck: No midline cervical tenderness, full spontaneous range of motion the neck, trachea midline, no adenopathy Heart: Regular rate and rhythm no murmurs or thrills Lungs: Clear to auscultation bilaterally without wheezes or crackles Abdomen: Soft, right upper quadrant tenderness,, nondistended with active bowel sounds Musculoskeletal: No tenderness, deformity, or edema Neurologic: Awake, alert, and oriented x3, no gross focal neurologic deficits, cranial nerves intact as tested Psych: Mood and affect are appropriate Skin: No rashes <Selwyn Rivero MD - Last Filed: 08/12/23 03:29> Const: Vital Signs, click to edit/add: Vital Signs - 24 hr 08/09/23 06:37 Temperature 98.8 F Pulse Rate [Pulse Oximeter] 75 Respiratory Rate 16 Blood Pressure [Ri ght Upper Arm] 161/92 H Pulse Oximetry 100 Oxygen Delivery Me thod Room Air <Selwyn Rivero MD - Last Filed: 08/12/23 03:29> Vital Signs, click to edit/add: Vital Signs - 24 hr 08/09/23 06:37 Temperature 98.8 F Pulse Rate [Pulse Oximeter] 75 Respiratory Rate 16 Blood Pressure [Ri ght Upper Arm] 161/92 H Pulse Oximetry 100 Oxygen Delivery Me thod Room Air <Santiago Chandler MD - Last Filed: 08/09/23 13:19> Course Course ED Course: Patient seen and examined, review prior records which shows significant history of anxiety and patient with multiple primary care visits in December and January 2023 related to this. Patient presents today with right upper quadrant and right flank pain accompanied by nausea, vomiting, and some loose stools. She does report that she has had some intermittent right upper quadrant pain for couple months usually comes and goes over the course of a couple hours. On exam here, she has right upper quadrant tenderness and appears uncomfortable, vital is stable. The patient has been experiencing biliary colic for couple of months and now has either an impacted stone or acute cholecystitis, consider kidney stone as well although less likely based on history and clinical exam. Other intra-abdominal process including colitis possible, no right lower quadrant tenderness and so acute appendicitis is less likely. <Selwyn Rivero MD - Last Filed: 08/12/23 03:29> Reevaluation(s) Time of Reevaluation #1: 06:59 <Selwyn Rivero MD - Last Filed: 08/12/23 03:29> Reevaluation #1: Right upper quadrant ultrasound independently interpreted by me with gallstones, but dilated common bile duct with what appears to be a impacted stone in the distal duct. <Selwyn Rivero MD - Last Filed: 08/12/23 03:29> Time of Reevaluation #2: 07:58 <Selwyn Rivero MD - Last Filed: 08/12/23 03:29> Reevaluation #2: Labs ordered and independently interpreted by me with normal white blood cell count, normal basic panel, elevated total bilirubin and direct bilirubin with AST and ALT in the 200s, normal alkaline phosphatase, normal lipase. Symptoms and findings today represented common bile duct obstruction. Patient will need to be transferred for ERCP. Sign out to oncoming provider <Selwyn Rivero MD - Last Filed: 08/12/23 03:29> Vital Signs Vital signs: Initial Vital Signs Temperature 98.8 F 08/09/23 06:37 Temperature Source Temporal Artery Scan 08/09/23 06:37 Pulse Rate 75 08/09/23 06:37 Pulse Rhythm Regular 08/09/23 06:37 Respiratory Rate 16 08/09/23 06:37 Blood Pressure 161/92 H 08/09/23 06:37 Blood Pressure Mean 115 H 08/09/23 06:37 Blood Pressure Position Supine 08/09/23 06:37 Pulse Oximetry 100 08/09/23 06:37 Oxygen Delivery Method Room Air 08/09/23 06:37 Vital Signs Temperature 98.8 F 08/09/23 06:37 Pulse Rate 75 08/09/23 06:37 Respiratory Rate 16 08/09/23 06:37 Blood Pressure 161/92 H 08/09/23 06:37 Pulse Oximetry 100 08/09/23 06:37 Oxygen Delivery Method Room Air 08/09/23 06:37 Temperature 98.8 F 08/09/23 06:37 Pulse Rate 73 08/09/23 13:21 Respiratory Rate 16 08/09/23 06:37 Blood Pressure 144/83 H 08/09/23 13:21 Pulse Oximetry 100 08/09/23 06:37 Oxygen Delivery Method Room Air 08/09/23 06:37 <Selwyn Rivero MD - Last Filed: 08/12/23 03:29> Initial Vital Signs Temperature 98.8 F 08/09/23 06:37 Temperature Source Temporal Artery Scan 08/09/23 06:37 Pulse Rate 75 08/09/23 06:37 Pulse Rhythm Regular 08/09/23 06:37 Respiratory Rate 16 08/09/23 06:37 Blood Pressure 161/92 H 08/09/23 06:37 Blood Pressure Mean 115 H 08/09/23 06:37 Blood Pressure Position Supine 08/09/23 06:37 Pulse Oximetry 100 08/09/23 06:37 Oxygen Delivery Method Room Air 08/09/23 06:37 Vital Signs Temperature 98.8 F 08/09/23 06:37 Pulse Rate 75 08/09/23 06:37 Respiratory Rate 16 08/09/23 06:37 Blood Pressure 161/92 H 08/09/23 06:37 Pulse Oximetry 100 08/09/23 06:37 Oxygen Delivery Method Room Air 08/09/23 06:37 Temperature 98.8 F 08/09/23 06:37 Pulse Rate 73 08/09/23 13:21 Respiratory Rate 16 08/09/23 06:37 Blood Pressure 144/83 H 08/09/23 13:21 Pulse Oximetry 100 08/09/23 06:37 Oxygen Delivery Method Room Air 08/09/23 06:37 <Santiago Chandler MD - Last Filed: 08/09/23 13:19> Medications Administered Medications: Discontinued Medications Generic Name Dose Route Start Last Admin Trade Name Freq PRN Reason Stop Dose Admin Hydromorphone HCl 0.5 mg 08/09/23 06:39 08/09/23 07:21 Hydromorphone 0.5 Mg/0.5 Ml Inj IVP 08/09/23 06:40 0.5 mg ONCE ONE Administration Sodium Chloride 1,000 mls @ 1,000 mls/hr 08/09/23 07:45 08/09/23 11:22 0.9 % Sodium Chloride 1000 Ml IV 08/09/23 08:44 Infused .Q1H GILBERTO Infusion Ondansetron HCl 4 mg 08/09/23 06:39 08/09/23 07:20 Ondansetron 2 Mg/Ml Inj IVP 08/09/23 06:40 4 mg ONCE ONE Administration <Selwyn Rivero MD - Last Filed: 08/12/23 03:29> Discontinued Medications Generic Name Dose Route Start Last Admin Trade Name Freq PRN Reason Stop Dose Admin Hydromorphone HCl 0.5 mg 08/09/23 06:39 08/09/23 07:21 Hydromorphone 0.5 Mg/0.5 Ml Inj IVP 08/09/23 06:40 0.5 mg ONCE ONE Administration Sodium Chloride 1,000 mls @ 1,000 mls/hr 08/09/23 07:45 08/09/23 11:22 0.9 % Sodium Chloride 1000 Ml IV 08/09/23 08:44 Infused .Q1H GILBERTO Infusion Ondansetron HCl 4 mg 08/09/23 06:39 08/09/23 07:20 Ondansetron 2 Mg/Ml Inj IVP 08/09/23 06:40 4 mg ONCE ONE Administration <Santiago Chandler MD - Last Filed: 08/09/23 13:19> Medical Decision Making MDM Narrative Medical decision making narrative: Care for this patient was transferred to [place] at the end of overnight physicians shift. The patient has choledocholithiasis with evidence of obstruction. Arrangements are made for transfer to [facility] for ERCP and further management. The patient prefers to go by private vehicle and is okay to do so as her vitals remain stable. I spoke with the GI physician on- call there, Dr. Hightower, who will arrange for ERCP. <Santiago Chandler MD - Last Filed: 08/09/23 13:19> Lab Data Labs: Lab Results 08/09/23 Range/Units 06:46 WBC 8.04 (4.50-11.00) K/uL RBC 5.05 (4.00-5.20) m/uL Hgb 14.4 (12.0-16.0) gm/dL Hct 43.7 (33.0-51.0) % MCV 87 (80-100) fL MCH 29 (26-34) pg MCHC 33 (32-36) gm/dL RDW Coeff of Miguelangel 12.8 (11.5-15.5) % Plt Count 378 (140-440) K/uL Neut % (Auto) 86.4 H (42.0-72.0) % Lymph % (Auto) 7.6 L (20-44) % [place] % (Auto) 5.6 (0.0-11.0) % Eos % (Auto) 0.1 (0.0-7.0) % Baso % (Auto) 0.2 (0.0-3.0) % Neut # (Auto) 6.90 (1.7-7.0) K/uL Lymph # (Auto) 0.60 L (0.90-2.90) K/uL [place] # (Auto) 0.50 (0.00-0.90) K/UL Eos # (Auto) 0.01 (0.00-0.50) K/uL Baso # (Auto) 0.02 (0.00-0.30) K/uL Abs Immat Gran (auto) 0.01 (0.00-0.30) K/uL Imm/Tot Granulo (auto) 0.1 % Sodium 137 (135-149) mmol/L Potassium 4.3 (3.6-5.1) mmol/L Chloride 106 (96-114) mmol/L Carbon Dioxide 27 (20-32) mmol/L Anion Gap 4 L (7-15) mEq/L BUN 11 (5-24) mg/dL Creatinine 0.8 (0.5-1.5) mg/dL Estimated Creat Clear 109.41 Estimated GFR 103 ml/min Glucose 128 H (60-115) mg/dL Calcium 9.1 (8.4-10.6) mg/dL Total Bilirubin 2.0 H (0.1-1.5) mg/dL Direct Bilirubin 1.0 H (0.0-0.5) mg/dL AST 286 H (12-35) U/L ALT 207 H (4-35) U/L Alkaline Phosphatase 116 (40-150) U/L Total Protein 8.3 (6.0-8.3) g/dL Albumin 4.4 (3.3-5.0) g/dL Lipase 46 (23-300) U/L Urine Color Ivy A (Yellow) Urine Appearance Clear (Clear) Urine pH 8.5 (5.0-8.5) Ur Specific [place] 1.015 (1.000-1.030) Urine Protein 1+ A (Negative) Urine Glucose (UA) Negative (Negative) Urine Ketones Negative (Negative) Urine Blood Negative (Negative) Urine Nitrite Negative (Negative) Urine Bilirubin 1+ A (Negative) Urine Urobilinogen 2.0 A (0.2-1.0) Ur Leukocyte Esterase Negative (Negative) Urine RBC 2-5 A (0-2) Urine WBC 0-2 (0-5) Ur Squamous Epith Cells Few (None-Few) Urine Bacteria None (None) Urine HCG, Qual Negative (Negative) <Selwyn Rivero MD - Last Filed: 08/12/23 03:29> Lab Results 08/09/23 Range/Units 06:46 WBC 8.04 (4.50-11.00) K/uL RBC 5.05 (4.00-5.20) m/uL Hgb 14.4 (12.0-16.0) gm/dL Hct 43.7 (33.0-51.0) % MCV 87 (80-100) fL MCH 29 (26-34) pg MCHC 33 (32-36) gm/dL RDW Coeff of Miguelangel 12.8 (11.5-15.5) % Plt Count 378 (140-440) K/uL Neut % (Auto) 86.4 H (42.0-72.0) % Lymph % (Auto) 7.6 L (20-44) % [place] % (Auto) 5.6 (0.0-11.0) % Eos % (Auto) 0.1 (0.0-7.0) % Baso % (Auto) 0.2 (0.0-3.0) % Neut # (Auto) 6.90 (1.7-7.0) K/uL Lymph # (Auto) 0.60 L (0.90-2.90) K/uL [place] # (Auto) 0.50 (0.00-0.90) K/UL Eos # (Auto) 0.01 (0.00-0.50) K/uL Baso # (Auto) 0.02 (0.00-0.30) K/uL Abs Immat Gran (auto) 0.01 (0.00-0.30) K/uL Imm/Tot Granulo (auto) 0.1 % Sodium 137 (135-149) mmol/L Potassium 4.3 (3.6-5.1) mmol/L Chloride 106 (96-114) mmol/L Carbon Dioxide 27 (20-32) mmol/L Anion Gap 4 L (7-15) mEq/L BUN 11 (5-24) mg/dL Creatinine 0.8 (0.5-1.5) mg/dL Estimated Creat Clear 109.41 Estimated GFR 103 ml/min Glucose 128 H (60-115) mg/dL Calcium 9.1 (8.4-10.6) mg/dL Total Bilirubin 2.0 H (0.1-1.5) mg/dL Direct Bilirubin 1.0 H (0.0-0.5) mg/dL AST 286 H (12-35) U/L ALT 207 H (4-35) U/L Alkaline Phosphatase 116 (40-150) U/L Total Protein 8.3 (6.0-8.3) g/dL Albumin 4.4 (3.3-5.0) g/dL Lipase 46 (23-300) U/L Urine Color Ivy A (Yellow) Urine Appearance Clear (Clear) Urine pH 8.5 (5.0-8.5) Ur Specific [place] 1.015 (1.000-1.030) Urine Protein 1+ A (Negative) Urine Glucose (UA) Negative (Negative) Urine Ketones Negative (Negative) Urine Blood Negative (Negative) Urine Nitrite Negative (Negative) Urine Bilirubin 1+ A (Negative) Urine Urobilinogen 2.0 A (0.2-1.0) Ur Leukocyte Esterase Negative (Negative) Urine RBC 2-5 A (0-2) Urine WBC 0-2 (0-5) Ur Squamous Epith Cells Few (None-Few) Urine Bacteria None (None) Urine HCG, Qual Negative (Negative) <Santiago Chandler MD - Last Filed: 08/09/23 13:19> Discharge Plan Discharge Clinical Impression: Choledocholithiasis with obstruction <Selwyn Rivero MD - Last Filed: 08/12/23 03:29> Patient Disposition: Xfer [facility] <Selwyn Rivero MD - Last Filed: 08/12/23 03:29> Condition: Unchanged <Selwyn Rivero MD - Last Filed: 08/12/23 03:29> Additional Instructions: Proceed directly for admission at [facility]. <Selwyn Rivero MD - Last Filed: 08/12/23 03:29> Prescriptions: No Action levonorgestrel-ethinyl estrad [Aviane] 0.1-20 mg-mcg tablet 1 tab PO QDAY Qty: 84 4RF sertraline 50 mg tablet 50 mg PO DAILY Qty: 90 3RF acetaminophen [Tylenol Extra Strength] 500 mg tablet 1,000 mg PO Q6H PRN ibuprofen 600 mg Tablet 600 mg PO Q6H PRNQty: 60 0RF <Selwyn Rivero MD - Last Filed: 08/12/23 03:29> Stand Alone Forms: [facility] Info Instructions <Selwyn Rivero MD - Last Filed: 08/12/23 03:29>
[2023-08-09 06:37] VITALS: BP 161/92; PULSE 75; RESP 16; TEMP 37.1; O2SAT 100; BMI 43.6
--- NOTE | 2023-08-09 06:39 | US_ITS ---
Patient: MERYL LAZO Facility:?[facility] Patient ID:?[id number] Site Patient ID:?[id number] Site :?[id number] Study:?US-Abdomen RUQ-08/09/2023 7:06:35 AM Ordering Physician:?LIZ ANGUIANO Final Report: INDICATION: Right upper quadrant abdomen pain, nausea and vomiting TECHNIQUE: Ultrasound abdomen limited. Sonographic images of the right upper quadrant were obtained using morris-scale and color Doppler images. COMPARISON: None FINDINGS: Liver: Normal in size and echotexture. No masses. No intrahepatic biliary dilatation. Gallbladder: Cholelithiasis without gallbladder wall thickening or pericholecystic inflammation. Common bile duct: 7 mm. Faint shadowing in the distal common duct suggesting a 6 millimeter distal common duct stone. Pancreas: Normal. Right kidney: Normal in size. Normal echotexture and cortex. No masses, stones, or hydronephrosis. Vasculature: Proximal abdominal aorta and IVC are normal. IMPRESSION: Cholelithiasis with mild dilatation of the common duct and faint shadowing in the distal common duct measuring 6 millimeters suggesting a distal common duct stone. Dictated by Lucas Aguila MD @ 08/09/2023 7:15:52 AM Signed by:?Lucas Aguila MD @08/09/2023 7:15:52 AM (Electronic Signature)
--- NOTE | 2023-08-09 06:51 | PC.NURSE ---
Radiology called, can tke pt. now or will be at a later time as going to floor to do procedure.
[2023-08-09] MEDS: ONDANSETRON 2 MG/ML inj 4 MG IVP (07:20)
[2023-08-09] MEDS: HYDROmorphone 0.5 mg/0.5 ml inj IVP (07:21)
[2023-08-09 07:27] LABS: Basophils Absolute Auto 0.02 K/uL (0.00-0.30); Basophils Percent Auto 0.2 % (0.0-3.0); Eosinophils Absolute Auto 0.01 K/uL (0.00-0.50); Eosinophils Percent Auto 0.1 % (0.0-7.0); Hematocrit 43.7 % (33.0-51.0); Hemoglobin* 14.4 gm/dL (12.0-16.0); Immature Granulocytes Abs Auto 0.01 K/uL (0.00-0.30); Immature Granulocytes Pct Auto 0.1 %; Lymphocytes Percent Auto 7.6 % (20-44); Mean Corpuscular HGB Conc 33 gm/dL (32-36); Mean Corpuscular Hemoglobin 29 pg (26-34); Mean Corpuscular Volume 87 fL (80-100); Monocytes Percent Auto 5.6 % (0.0-11.0); Neutrophils Percent Auto 86.4 % (42.0-72.0); Platelet Count* 378 K/uL (140-440); RDW Coefficient of Variation % 12.8 % (11.5-15.5); Red Blood Count 5.05 m/uL (4.00-5.20); Slide Review Reflex No; White Blood Count* 8.04 K/uL (4.50-11.00)
[2023-08-09 07:40] LABS: Albumin* 4.4 g/dL (3.3-5.0)
[2023-08-09 07:41] LABS: Chloride* 106 mmol/L (96-114); Potassium* 4.3 mmol/L (3.6-5.1); Sodium* 137 mmol/L (135-149)
[2023-08-09 07:43] LABS: Anion Gap 4 mEq/L (7-15); Carbon Dioxide* 27 mmol/L (20-32); Creatinine* 0.8 mg/dL (0.5-1.5); Est. Creatinine Clearance* 109.41; Estimated Glomerular Filt Rate 103 ml/min
[2023-08-09 07:44] LABS: Alanine Aminotransferase* 207 U/L (4-35); Alkaline Phosphatase* 116 U/L (40-150); Aspartate Amino Transferase* 286 U/L (12-35); Blood Urea Nitrogen* 11 mg/dL (5-24); Calcium* 9.1 mg/dL (8.4-10.6); Glucose* 128 mg/dL (60-115); Lipase* 46 U/L (23-300); Total Protein* 8.3 g/dL (6.0-8.3)
[2023-08-09] MEDS: 0.9 % SODIUM CHLORIDE 1000 ml 1,000 ML IV (08:12)
[2023-08-09 09:49] LABS: Appearance Urine Clear (Clear); Bilirubin Urine 1+ (Negative); Blood Urine Negative (Negative); Color Urine Amber (Yellow); Glucose Urine Negative (Negative); Ketones Urine Negative (Negative); Leukocyte Esterase Urine Negative (Negative); Nitrite Urine Negative (Negative); Protein Urine 1+ (Negative); Specific Gravity Urine 1.015 (1.000-1.030); pH Urine 8.5 (5.0-8.5)
[2023-08-09 09:54] LABS: Ur HCG Qualitative* Negative (Negative)
[2023-08-09 10:53] LABS: Squamous Epithelial Cell Urine Few (None-Few); WBC Urine 0-2 (0-5)
[2023-08-09 13:21] VITALS: BP 144/83; PULSE 73
== END 2023-08-09 13:22 | disposition short-term general hospital (02) ==
PROVIDERS: Family Medicine; Emergency Provider Emergency Medicine Emergency Medical Services
DX: K80.81 Other cholelithiasis with obstruction (principal)
CPT/HCPCS: 36415; 76705; 80048; 80076; 81001; 81025; 83690; 85025; 96374; 96375; 99285; J1170; J2405; J7030